=== PATIENT | male | born 1990 | race Hispanic/Latino ===

== ENCOUNTER 2020-11-28 21:32 | Emergency (ER) | payer OTHER ==
[2020-11-28 21:34] VITALS: BP 168/83
[2020-11-29] MEDS ORDERED: DIPHENHYDRAMINE HCL 25 MG CAPSULE PO ONE (01:30)
[2020-11-29] MEDS ORDERED: TRAMADOL HCL 50 MG TABLET PO ONE (01:30)
[2020-11-29] MEDS ORDERED: IBUPROFEN 800 MG TAB PO ONE (01:30)
[2020-11-29] MEDS ORDERED: IBUP-1493 PO (01:34)
[2020-11-29] MEDS ORDERED: CLIN300C10 PO (01:34)
[2020-11-29] MEDS ORDERED: TRAM50TA4 PO (01:34)
[2020-11-29 01:46] VITALS: BP 156/73
== END 2020-11-29 01:56 | disposition home or self-care (01) ==
LOC: EDH 21:32
DX: K04.7 Periapical abscess without sinus (principal); Z88.0 Allergy status to penicillin; Z88.1 Allergy status to other antibiotic agents; Z79.1 Long term (current) use of non-steroidal anti-inflammatories (NSAID); Z98.890 Other specified postprocedural states
CPT/HCPCS: Q0163